=== PATIENT | male | born 1970 | race Caucasian/White ===

== ENCOUNTER 2016-11-24 09:02 | Day surgery (SDC) | payer OTHER, BC ==
[~2016-11-24 09:02] MED LIST: FLORAJEN3 PO; LOVASTATIN20 MG PO; TESTOSTERON100 MG/ML IM
--- NOTE | 2016-11-24 12:32 | Provider's Discharge Care Plan ---
Problem, Goal, Plan Problem List 1. Rectal bleeding 2. History of colon polyps
--- NOTE | 2016-11-24 12:32 | Provider's Discharge Care Plan ---
Problem, Goal, Plan Problem List 1. Rectal bleeding 2. History of colon polyps
--- NOTE | 2016-11-24 13:52 | OPERATIVE REPORT ---
DATE OF SURGERY: 11/24/2016 SURGEON: Kvng Sol MD PREOPERATIVE DIAGNOSIS: 1. History of colon polyps POSTOPERATIVE DIAGNOSIS: 1. Normal colonoscopy PROCEDURE PERFORMED: 1. Colonoscopy ANESTHESIA: Total IV general. INDICATIONS: The patient is a 46-year-old man with previous tubular adenomas in his colon. He has also had episodic diarrhea. SURGICAL TECHNIQUE: The patient was taken to the endoscopy suite, where total IV general was administered and the patient was placed in the left lateral decubitus position. A well-lubricated colonoscope was advanced the length colon under direct vision. A digital exam was also performed and eversion of the anus was done. The patient had some internal hemorrhoids, but not much in the way of prolapsing hemorrhoids and no active bleeding seen. Note this patient had a PPH procedure in 2008. The ileocecal valve and cecum were visualized. On withdrawal, the entire colon was inspected. There were some pockets of liquid in the colon, but in general the prep was good and there was not much in the way of solid or formed stool at all. This is despite the patient being unable to get down his split dose completely. The inspection was normal, and a retroflexed view of the rectum demonstrated no additional findings. The patient left in good condition and no intraoperative complications were encountered.
== END 2016-11-24 14:19 | disposition home or self-care (01) ==
LOC: OR SRH 09:02 → SCU SRH 09:08
PROVIDERS: Surgery
PROC: 0DJD8ZZ Inspection of Lower Intestinal Tract, Via Natural or Artificial Opening Endoscopic (ICD-10-PCS; principal; 2016-11-24 11:15)
DX: Z12.11 Encounter for screening for malignant neoplasm of colon (principal); Z86.010 Personal history of colon polyps; R19.7 Diarrhea, unspecified; I10 Essential (primary) hypertension
CPT/HCPCS: 29229; 29240; 50004; 60001; 83526